=== PATIENT | male | born 1945 | race Caucasian/White ===

== ENCOUNTER → 2017-12-08 12:41 | Outpatient (CLI) | payer MEDICARE, OTHER, SELFPAY ==
--- NOTE | 2017-12-08 | DI.RAD.S_ITS ---
PROCEDURE: XR CHEST 2V INDICATIONS: COUGH,CHEST PAIN TECHNIQUE: 2 views of the chest were acquired. COMPARISON: None. FINDINGS: Surgical changes and devices: There is a cardiac pacemaker in expected position. Lungs and pleura: The lateral parotid and thickness are suspicious for pulmonary edema. There are small pleural effusions. No pneumothorax. Mediastinum: Mediastinal contours are normal. Heart size is normal. Bones and chest wall: No suspicious bony abnormalities. Soft tissues appear unremarkable. IMPRESSION: Bilateral perihilar infiltrates and small pleural effusions, suspicious for pulmonary edema secondary to congestive heart failure. Superimposed pneumonia cannot be excluded. Dictated by: Shantanu Draper M.D. on 12/08/2017 at 16:31 Approved by: Shantanu Draper M.D. on 12/08/2017 at 16:33
== END ==
DX: R05 Cough (principal); R07.9 Chest pain, unspecified; R06.00 Dyspnea, unspecified; I50.9 Heart failure, unspecified
CPT/HCPCS: 71046